=== PATIENT | female | born 1985 | race Caucasian/White ===

== ENCOUNTER → 2021-09-24 | Outpatient (CLI) | payer BC ==
[2021-09-24 17:59] LABS: Basophils # (A) 0.03 X 10*3/uL (0.00-0.10); Basophils % (A) 0.7 %; Eosinophils # (A) 0.05 X 10*3/uL (0.04-0.35); Eosinophils % (A) 1.2 %; HCT 43.5 % (37.2-46.3); HGB 13.9 g/dL (12.0-15.0); Immature Grans, Automated 0.2 %; Lymphocytes # (A) 1.42 X 10*3/uL (0.90-5.00); Lymphocytes % (A) 34.5 %; MCH 29.1 pg (27.0-32.0); MCV 91.2 fL (80.0-97.0); Mean Platelet Volume 10.4 fL (9.5-12.2); Monocytes # (A) 0.33 X 10*3/uL (0.20-1.00); NRBC Per 100 WBC 0 /100 WBCS (0.0-0.0); Neutrophils # (A) 2.28 X 10*3/uL (1.80-7.70); Neutrophils % (A) 55.4 %; Platelet Count 223 X 10*3/uL (140-440); RBC 4.77 X 10*6/uL (4.10-5.20); RDW 12.9 % (11.5-14.5); WBC 4.12 X 10*3/uL (4.50-10.00)
== END | disposition home or self-care (01) ==
LOC: LABPAT 10:54
PROVIDERS: ATTEND Obstetrics & Gynecology
DX: Z01.812 Encounter for preprocedural laboratory examination (principal); R87.613 High grade squamous intraepithelial lesion on cytologic smear of cervix (HGSIL)
CPT/HCPCS: 85025

== ENCOUNTER 2021-10-02 06:19 | Day surgery (SDC) | payer BC ==
--- NOTE | 2021-10-01 10:01 | HP ---
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 She underwent colposcopic biopsies which confirmed the presence of KAITLIN 3. She is scheduled to undergo cervical cold knife cone biopsy for both further diagnostic and therapeutic indications. ALLERGIES: NONE. MEDICATIONS: vitamin. PAST MEDICAL HISTORY: Abnormal Pap smear. PAST SURGICAL HISTORY: Root canal. PAST OBSTETRICAL/GYNECOLOGICAL HISTORY: She is 3, para 3 with history of three normal spontaneous vaginal deliveries. She is currently breast-feeding and not using contraception. SOCIAL HISTORY: . Negative for tobacco, alcohol and drug use. FAMILY HISTORY: Noncontributory. REVIEW OF SYSTEMS: The patient denies abdominal or pelvic pain, change in bowel or bladder habits, post- coital bleeding or vaginal discharge. She is amenorrheic. PHYSICAL EXAMINATION: Height 5 feet 3 inches, weight 112 pounds, blood pressure 110/66, heart rate 60. In general, this is a very pleasant female in no apparent distress. HEENT exam is unremarkable with no palpable lymphadenopathy or thyromegaly. The lungs are clear to auscultation bilaterally. Her heart has a regular rate and rhythm. The abdomen is slim, soft and nontender with no rebound, no guarding and no flank pain. On pelvic examination, she has normal female external genitalia. On pelvic examination, she does have a patulous cervix with ectropion. There are no gross visible lesions noted. On bimanual examination, the uterus is small, freely mobile and in the midline. There are no adnexal masses appreciated. ASSESSMENT: [id number] 4, para 3 woman with high-grade KATARINA, KAITLIN 3 on colposcopic biopsies. She is scheduled to undergo cervical cold knife cone biopsy. The procedure, anticipated recovery time and risks have been reviewed with the patient. Risks include but are not limited to bleeding, transfusion, infection, injury to bowel or bladder or uterus, incomplete resection of cervical dysplasia, anesthesia complications. Consent has been obtained, and she is scheduled for 10/02/2021 for cervical cold knife cone biopsy. MMODL / IJN: [id number] /
[~2021-10-02 06:19] MED LIST: DEXAMETHASONE SOD PHOSPHATE 4 MG/ML 1 ML VIAL IV ONE; LIDOCAINE 1% (10MG/ML) FOR IV START INTRADERMA PRN; MIDAZOLAM 2 MG/2 ML VIAL IV PRN; ONDANSETRON 4 MG/2 ML VIAL IVP ONE; Pre Op ABX Message 1 EACH MISC MISCELLANE ONE
[2021-10-02] MEDS: LACTATED RINGERS 1,000 ML IV SCH ×2 (06:57→07:30)
[2021-10-02] MEDS ORDERED: HYDROmorphone 0.5 MG/0.5 ML SYRINGE IVP PRN (07:00)
[2021-10-02] MEDS ORDERED: PROPOFOL 10 MG/ML 20 ML VIAL IV ONE (07:25)
[2021-10-02] MEDS ORDERED: LIDOCAINE 2% INJ 20 MG/ML (2 ML VIAL) ONE (07:25)
[2021-10-02] MEDS ORDERED: fentaNYL (PF) 50 MCG/ML 2 ML AMP ONE (07:25)
[2021-10-02] MEDS ORDERED: FERRIC SUBSULFATE (MONSELS) JAR TOPICAL ONE (07:48)
[2021-10-02] MEDS ORDERED: IODINE/POTASS IOD (LUGOLS) BOTTLE TOPICAL ONE (07:49)
[2021-10-02] MEDS ORDERED: LIDOCAINE 1%-EPI 1:100,000 20 ML VIAL SUBMUCOSAL ONE (07:49)
--- NOTE | 2021-10-02 08:11 | P.OP ---
Date of Procedure: 10/02/21 Preoperative Diagnosis: KAITLIN 3, high-grade KATARINA Postoperative Diagnosis: Same Procedure(s) Performed: Cervical cold knife cone biopsy Anesthesia: MAC Surgeon: Hannah Ramirez Estimated Blood Loss (ml): 5 IV fluids (ml): 400 Urine output (ml): 5 Pathology: other (Cervical biopsy) Condition: stable Disposition: PACU Indications for Procedure: KAITLIN-3 Operative Findings: Multiparous cervix with evidence of previous colposcopic cervical biopsies. No gross lesions visualized. Description of Procedure: After the patient was met in the preoperative holding area and all questions w ere answered, she was taken to the operating room where anesthetic was administered without incident. She was positioned, prepped and draped in the dorsal lithotomy position. Bladder was drained for a scant amount of clear urine. Single-sided speculum was placed in the vagina and the cervix was grasped anteriorly with a single-tooth tenaculum. Paracervical block with lidocaine plus epinephrine was placed. Stay sutures at 3 and 9:00 were placed with 0 Vicryl suture. Lugol's solution was applied to the cervix to delineate the transformation zone. 11 blade scalpel was then utilized to circ umferentially incise the cervix encompassing the transformation zone. This was angled in at a depth of approximately 1 cm creating a cone shaped specimen. This was handed off for pathology. Bovie electrocautery was then utilized to cauterize the entirety of the base and external edges of the excision site. Excellent hemostasis was noted. Surgicel powder was placed in the base of the biopsy as well for ongoing hemostasis. The stay sutures were tied down. The surgical site was observed for several minutes and no active bleeding was noted. The patient was therefore awoken from anesthetic after instruments removed from the vagina. She was transported to recovery room in good condition. All counts were correct.
[2021-10-02 08:16] VITALS: TEMP 98.2
[2021-10-02 08:33] VITALS: RESP 16
[2021-10-02 09:13] VITALS: BP 123/78; PULSE 73
== END 2021-10-02 10:01 | disposition home or self-care (01) ==
LOC: OR 06:19
PROVIDERS: ATTEND Obstetrics & Gynecology
DX: N87.0 Mild cervical dysplasia (principal)
CPT/HCPCS: 81025; 88307; 57520; J1100; J2405; J3010; J2704; J2001

== ENCOUNTER → 2024-04-26 | Outpatient (CLI) | payer BC, OTHER ==
[~2024-04-26] MED LIST changes: -DEXAMETHASONE SOD PHOSPHATE 4 MG/ML 1 ML VIAL IV ONE; -LIDOCAINE 1% (10MG/ML) FOR IV START INTRADERMA PRN; -MIDAZOLAM 2 MG/2 ML VIAL IV PRN; -ONDANSETRON 4 MG/2 ML VIAL IVP ONE; -Pre Op ABX Message 1 EACH MISC MISCELLANE ONE; +SODIUM CHLORIDE 0.9% 250 ML in EMPTY BAG 1 BAG IV PRN
[2024-04-26] MEDS: SODIUM CHLORIDE 0.9% 500 ML 500 ML in EMPTY BAG 1 BAG IV PRN (08:46)
[2024-04-26 08:50] VITALS: BP 114/82; PULSE 76; RESP 16; TEMP 98.2
[2024-04-26] MEDS: SODIUM FERRIC GLUCONAT-SUCROSE 62.5 MG in SODIUM CHLORIDE 0.9% 100 ML IVPB NR (08:50)
== END ==
LOC: PROCWHC3 08:25
PROVIDERS: ATTEND Nurse Practitioner Adult Health
DX: D64.9 Anemia, unspecified (principal)
CPT/HCPCS: 96365; J2916

== ENCOUNTER → 2024-08-09 | Outpatient (CLI) | payer BC, OTHER ==
[2024-08-09 10:27] VITALS: BP 108/71; PULSE 83; RESP 16; TEMP 98.4
[2024-08-09] MEDS: SODIUM CHLORIDE 0.9% 500 ML 500 ML in EMPTY BAG 1 BAG IV PRN (10:28)
[2024-08-09] MEDS: SODIUM FERRIC GLUCONAT-SUCROSE 62.5 MG in SODIUM CHLORIDE 0.9% 100 ML IVPB NR (10:35)
== END ==
LOC: PROCWHC3 10:01
PROVIDERS: ATTEND Family Medicine
DX: D50.9 Iron deficiency anemia, unspecified (principal)
CPT/HCPCS: 96365; J2916